=== PATIENT | male | born 1960 | race Caucasian/White ===

== ENCOUNTER 2021-06-05 10:09 | Day surgery (SDC) | payer OTHER ==
[~2021-06-05] VITALS: Ht 185.4 cm; Wt 100.9 kg
[~2021-06-05 10:09] MED LIST: ALTERIL PO; ARIP20TA PO; ASCO500 PO; ATOR10TA69 PO; CHOL-35 PO; CLOZ100T32 PO; GEMF600T89 PO; LAMO100 PO; LEVO50TA11 PO; LOSA25TA21 PO; METO25XL PO; SODIUM CHLORIDE 0.9% 1,000 ML ONE
[2021-06-05] MEDS ORDERED: PROPOFOL 1% ISO-OSM 1000 MG/100 ML BOTTLE IV ONE (10:10)
[2021-06-05] MEDS ORDERED: MIDAZOLAM HCL 2 MG/2 ML VIAL IVP ONE (10:10)
[2021-06-05] MEDS ORDERED: LIDOCAINE/PF 2% 5 ML VIAL IM ONE (10:10)
[2021-06-05] MEDS ORDERED: FentaNYL CITRATE PF 100 MCG/2 ML VIAL IVP ONE (10:10)
[2021-06-05 10:52] LABS: COVID AG,FIA SOURCE NASOPHARYNGEAL
[2021-06-05 10:53] LABS: BASOPHILS % (AUTO) 0.5 % (0.0-2.0); EOSINOPHILS % (AUTO) 0 % (1.0-6.0); HEMATOCRIT 38.3 % (41-53); HEMOGLOBIN 13.1 g/dL (13.5-17.5); LYMPHOCYTES # (AUTO) 1.1 K/uL (1.0-4.8); LYMPHOCYTES % (AUTO) 22.7 % (22.0-44.0); MEAN CORPUSCULAR HGB CONC 34.2 G/dL (31.0-37.0); MEAN CORPUSCULAR VOLUME 88 fL (80-100); MONOCYTES # (AUTO) 0.4 K/uL (0.1-1.0); MONOCYTES % (AUTO) 8.4 % (2.0-9.0); NEUTROPHILS # (AUTO) 3.4 K/uL (1.8-7.7); NEUTROPHILS % (AUTO) 68.4 % (40.0-70.0); PLATELET COUNT (AUTO) 100 K/uL (150-450); RED BLOOD CELL COUNT(AUTO) 4.35 MIL/uL (4.50-5.90); RED CELL DISTRIBUTION WIDTH 13.5 % (11.5-14.5)
[2021-06-05] MEDS ORDERED: SODIUM CHLORIDE 0.9% 1,000 ML IV ONE (11:00)
[2021-06-05 11:02] LABS: CALCIUM, TOTAL 9.5 mg/dL (8.8-10.5); CREATININE 2.16 mg/dL (0.60-1.30); POTASSIUM 4.4 mmol/L (3.5-5.1)
[2021-06-05 11:06] LABS: PROTHROMBIN TIME 10.5 SEC (9.4-11.6)
[2021-06-05 11:08] LABS: ALBUMIN 3.9 g/dL (3.4-5.0); BILIRUBIN,TOTAL 0.6 mg/dL (0.1-1.0); TOTAL PROTEIN, SERUM 7.3 g/dL (6.4-8.2)
[2021-06-05] MEDS ORDERED: LIDOCAINE/PF 1% 30 ML VIAL ONE ×2 (12:04→12:06)
[2021-06-05] MEDS ORDERED: SODIUM BICARBONATE 50 MEQ/50 ML VIAL ONE (12:04)
[2021-06-05 12:35] VITALS: BP 146/81
[2021-06-05] MEDS ORDERED: LIDOCAINE 1% 30 ML/SOD BICARB 8.4% 4 ML SQ ONE (13:00)
[2021-06-05] MEDS ORDERED: BUPIVACAINE LIPOSOME/PF 1.3%-13.3MG/ML SUSPENSION 10 ML VIAL INJ ONE (13:00)
[2021-06-05 14:01] VITALS: BP 112/69
[2021-06-05] MEDS ORDERED: CeFAZolin 1 GM/DEXTROSE 50 ML IV ONE ×2 (16:31→17:00)
== END 2021-06-05 18:10 | disposition home or self-care (01) ==
LOC: SDS 10:09
PROVIDERS: ATTEND Internal Medicine Clinical Cardiac Electrophysiology
DX: Z45.02 Encounter for adjustment and management of automatic implantable cardiac defibrillator (principal); N18.30 Chronic kidney disease, stage 3 unspecified; E03.9 Hypothyroidism, unspecified; Z79.899 Other long term (current) drug therapy; Z79.01 Long term (current) use of anticoagulants; Z90.49 Acquired absence of other specified parts of digestive tract; Z98.890 Other specified postprocedural states
CPT/HCPCS: 33263; 36415; 80053; 85025; 85610; 85730; 87426; 88300; 93005; C1882; C9803; J0690; J2250; J2704; J3010; J3490 ×3; J7030; Q9967; 33240